=== PATIENT | female | born 1955 | race Hispanic/Latino ===

== ENCOUNTER 2017-06-12 09:59 | Day surgery (SDC) | payer OTHER ==
[2017-06-12 10:37] VITALS: TEMP 97.5
[2017-06-12] MEDS ORDERED: Propofol 10 mg/ml Inj (20 ML) ONE ×2 (12:24→12:42)
[2017-06-12] MEDS ORDERED: Lactated Ringer's 1,000 ML IV ONE (12:25)
[2017-06-12] MEDS ORDERED: Midazolam 2 MG/2 ML VIAL ONE (12:25)
[2017-06-12] MEDS ORDERED: Lidocaine Hydrochloride 5 ML INJ ONE (12:31)
[2017-06-12 15:28] VITALS: O2SAT 100
[2017-06-12 15:37] VITALS: BP 128/74; PULSE 77; RESP 18
== END 2017-06-12 14:15 | disposition home or self-care (01) ==
LOC: C.ENDO 09:59
PROVIDERS: ATTEND Internal Medicine Gastroenterology
DX: K27.9 Peptic ulcer, site unspecified, unspecified as acute or chronic, without hemorrhage or perforation (principal); K29.60 Other gastritis without bleeding; K64.8 Other hemorrhoids; R19.06 Epigastric swelling, mass or lump
CPT/HCPCS: 43239; 45378; 82948; 88305; 88342; J2250; J2704; J7120

== ENCOUNTER 2017-06-19 08:04 | Day surgery (SDC) | payer OTHER ==
[2017-06-19 08:33] VITALS: BMI 32.0
[2017-06-19] MEDS ORDERED: Lidocaine Hydrochloride 5 ML INJ ONE (09:40)
[2017-06-19] MEDS ORDERED: Propofol 10 mg/ml Inj (20 ML) ONE ×2 (09:40)
[2017-06-19] MEDS ORDERED: Lactated Ringer's 1,000 ML IV ONE (09:45)
[2017-06-19 10:39] VITALS: TEMP 97.1
[2017-06-19 11:40] VITALS: BP 142/77; PULSE 78; RESP 19; O2SAT 99
== END 2017-06-19 11:30 | disposition home or self-care (01) ==
LOC: C.ENDO 08:04
PROVIDERS: ATTEND Internal Medicine
DX: D13.1 Benign neoplasm of stomach (principal); K29.70 Gastritis, unspecified, without bleeding
CPT/HCPCS: 43238; 82948; 88305; J2704; J7120

== ENCOUNTER 2017-09-26 08:53 | Inpatient (IN) | payer OTHER ==
[2017-09-20 11:17] VITALS: BMI 33.2
[2017-09-26] MEDS ORDERED: Bupivacaine 0.25% 20 ML INJ IJ ONE (12:26)
[2017-09-26] MEDS ORDERED: Lidocaine 1% 20 MG/2 ML PF AMP ONE ×2 (12:26→13:02)
[2017-09-26] MEDS ORDERED: Ciprofloxacin 400mg/200ml D5W 400 MG/200 ML BAG IVPB ONE (12:35)
[2017-09-26] MEDS ORDERED: metroNIDAZOLE IV 500 mg/100 ml 500 MG/100 ML BAG ONE (12:35)
[2017-09-26] MEDS ORDERED: Midazolam 2 MG/2 ML VIAL ONE (12:58)
[2017-09-26] MEDS ORDERED: Propofol 10 mg/ml Inj (20 ML) ONE (12:58)
[2017-09-26] MEDS ORDERED: Rocuronium 10 mg/ml (5 ml) ONE (14:06)
[2017-09-26] MEDS ORDERED: Succinylcholine Chloride 20 mg/ml Syr (5 ml) IV ONE (14:06)
[2017-09-26] MEDS ORDERED: Neostigmine Methylsulfate 3mg/3ml Syringe IV ONE (14:47)
[2017-09-26] MEDS ORDERED: Phenylephrine 10 mg/ml Inj ONE (14:49)
--- NOTE | 2017-09-26 15:41 | PCM.SURG1 ---
Surgeon's Initial Post Op Note - Surgeon's Notes Surgeon: Donavan Car Driver: Henrry Type of Anesthesia: General Endo, Local Pre-Operative Diagnosis: GIST Operative Findings: Gastric mass in greater curvature of body of stomach Post-Operative Diagnosis: same Operation Performed: Laparoscopic gastric wedge resection w. EGD Specimen/Specimens Removed: stomach wedge Estimated Blood Loss: EBL {In ML}: 10 Blood Products Given: N/A Drains Used: No Drains Post-Op Condition: Good Date of Surgery/Procedure: 09/26/17 Time of Surgery/Procedure: 15:40
[2017-09-26] MEDS ORDERED: Lidocaine 5% Patch TD SCH (15:45)
[2017-09-26] MEDS: HYDROmorphone 0.5 mg/0.5 ml ISec IVP PRN ×3 (15:54→16:30)
[2017-09-26] MEDS ORDERED: Lactated Ringer's 1,000 ML IV ONE (16:37)
[2017-09-26] MEDS: (Novolin R) Insulin Human Regular 100 units/ml vial SC SCH ×2 (19:31→22:40)
[2017-09-26] MEDS: Lactated Ringer's 1,000 ML IV SCH ×2 (19:35→23:59)
--- NOTE | 2017-09-26 22:28 | PCM.OP ---
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 Peptic ulcer disease. Morbid obesity. 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 Peptic ulcer disease. Morbid obesity. Indication for Surgery: This is a very nice woman who has a history of PUD and H.pylori who was found to have a submucosal ulcerated mass in the mid-body of her stomach along the greater curve. 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 Details of HPI per clinical chart. The risks of surgery that includes leaks, bleeding, infections or injury, and need for open surgery have all been explained, and informed consent obtained. Operative Findings: Endoscopic findings: previously described gastric mass seen with central dimpling without gross ulceration or bleeding. Remaing esophagus appeared normal. GE junction at 38cm. No evidence of hiatus hernia. pylorus normal. 3rd part of duodenum intubated and appeared normal. Laparoscopic findings: Large 4cm x3cm exophytic mass on lateral and slightly posterior portion of greater curvature of gastric body. No other abnormal findings. Gastric mass removed in its entirety. Gastric staple lines hemostatic and negative peumatic leak test at end of case. Procedure/Operation Description: PROCEDURE PERFORMED: 1. Laparoscopic lateral wedge gastrectomy. 2. Esophagogastroduodenoscopy. DETAILS OF PROCEDURE: The patient was brought to the operating room, placed in the supine position. Ciprofloxacin and Flagyl given within 30 minutes prior to incision. Sequential compression stockings placed for DVT prophylaxis. No montes catheter placed as patient voided immediately prior to coming to OR. Abdominal hair removal with electrical clippers. Upper and lower body warming blankets placed to maintain body temperature. All pressure points padded. Arms were in neutral position at 80-degrees from the torso and all pressure points were padded. All trocar sites were preanesthetized with local anesthesia listed above. A #11 blade was used to make all skin incisions. A time-out was performed prior to incision. At 18 cm distal to the xiphoid along the midline, we made a transverse incision and entered the abdomen using a direct optical viewing device. Abdomen was insufflated to 15 mmHg using CO2. We then placed 5mm trocar in the patient's left mid abdomen under direct visualization, a 15mm. trocar in the patient's right mid-abdomen, and a 5 mm trocar in the left subcostal region. All trocars were placed under vision. Endoscopy was performed to confirm the exact location of gastric lesion. At approximately 8 cm proximal to the pylorus along the greater curvature, we. entered the lesser sac using the Vessel sealer. We then used the vessel. sealer and divided the short gastric vessels proximal and distal the the exophytic gastric mass. There was excellent hemostasis when this was done. After this was done, we passed our gastroscope down in towards the pylorus to serve as a calibrator tube. We used at total of 4 blue loads of te EndoGIA linear stapler to divide the gastric body mass as a lateral vertical wedge resection. Care was taken to minimize any encroachment on the angularis. All the staple lines were reinforced with SeamGuard staple reinforcement. The total gastric wedge specimen was measured on the back table and found to be [id number] in max dimension and inclusive of the entire mass. We then tested the gastric staple line under saline immersion with the gastroscope. There was no bleeding or any air leaks. We did this a couple times and it was the same. We withdrew the gastroscope under direct visualization. We then covered the entire staple line with omentum. We used the EndoCatch bag to remove the specimen through the RIGHT abdominal 15mm trocar site. We then closed the fascia at the trocar site using 0 Vicryl sutures interrupted x4 with the assistance of a suture passer under direct. visualization. We removed all the trocars under direct visualization and. evacuated the pneumoperitoneum. We then closed the skin using 4-0 Monocryl sutures in running subcuticular. fashion. Dermabond glue was applied. The patient tolerated the procedure well and was extubated on the operating room table. The patient was transferred to recovery in stable condition. All sponge , needle and instrument counts were correct. I was present for the entirety of the operation. Estimated Blood Loss: 20mL Complications: none Specimen: lateral gastric wedge of gastric mass Discharge & Condition: above
[2017-09-27] MEDS: Lactated Ringer's 1,000 ML IV SCH ×3 (03:07→21:49)
[2017-09-27] MEDS: HYDROmorphone 0.5 mg/0.5 ml ISec IVP PRN ×3 (03:55→21:02)
[2017-09-27] MEDS: (Novolin R) Insulin Human Regular 100 units/ml vial SC SCH ×4 (08:09→22:00)
[2017-09-27 08:29] LABS: BASO # 0.1 K/uL (0.0-0.2); BASO % 0.7 % (0.0-2.0); EOS % 0.5 % (0.0-4.0); LYMPH # 1.9 K/uL (1.0-4.3); LYMPH % 21.8 % (20.0-40.0); MEAN CELL VOLUME 86.7 fL (81.0-99.0); MEAN CORPUSCULAR HEMOGLOBIN 29.8 pg (27.0-31.0); MEAN CORPUSCULAR HGB CONC 34.4 g/dL (33.0-37.0); MEAN PLATELET VOLUME 8.2 fL (7.2-11.7); MONO # 0.7 K/uL (0.0-0.8); MONO % 8.4 % (0.0-10.0); NEUT % 68.6 % (50.0-75.0); RBC 4.7 Mil/uL (3.80-5.20); RED CELL DISTRIBUTION WIDTH 14.1 % (11.5-14.5); WHITE BLOOD COUNT 8.8 K/uL (4.8-10.8)
[2017-09-27 08:54] LABS: BLOOD UREA NITROGEN 12 mg/dL (7-17); CALCIUM 8.4 mg/dl (8.6-10.4); GFR NON-AFRICAN AMERICAN > 60
[2017-09-27] MEDS: Enoxaparin 40 mg Syringe SC SCH (10:42)
[2017-09-27] MEDS: Lidocaine 5% Patch TD SCH (10:42)
[2017-09-27] MEDS ORDERED: Iohexol 240 200 ML ONE (11:16)
--- NOTE | 2017-09-27 15:11 | CP.PCM.PN ---
<Umer Sales - Last Filed: 09/27/17 15:06> Subjective - Date & Time of Evaluation Date of Evaluation: 09/27/17 Time of Evaluation: 15:06 - Subjective Subjective: Surgery: Dr. Go Pt seen and examined. No acute events overnight. Pt is feeling well this AM. Pain controlled. No N/V. No F/C. Passing flatus, +BM. Objective - Vital Signs/Intake and Output Vital Signs (last 24 hours): Temp Pulse Resp BP Pulse Ox 98.2 F 76 20 130/79 96 09/27/17 07:00 09/27/17 07:00 09/27/17 07:00 09/27/17 07:00 09/27/17 07:00 Intake and Output: 09/27/17 09/27/17 06:59 18:59 Intake Total 800 Output Total 1000 Balance -200 - Medications Medications: Current Medications Enoxaparin Sodium (Lovenox) 40 mg SC DAILY [facility] Last Admin: 09/27/17 10:42 Dose: 40 mg Hydromorphone HCl (Dilaudid) 0.5 mg IVP Q3H PRN PRN Reason: Pain, moderate (4-7) Last Admin: 09/27/17 10:43 Dose: 0.5 mg Lactated Ringer's (Lactated Ringer's) 1,000 mls @ 100 mls/hr IV .Q10H [facility] Last Admin: 09/27/17 14:46 Dose: 100 mls/hr Insulin Human Regular (Novolin R) 0 unit SC ACHS [facility] PRN Reason: Protocol Last Admin: 09/27/17 11:49 Dose: Not Given Ketorolac Tromethamine (Toradol) 15 mg IVP Q6 [facility] Stop: 09/27/17 18:01 Last Admin: 09/27/17 14:45 Dose: 15 mg Lidocaine (Lidoderm) 1 ea TD DAILY [facility] Last Admin: 09/27/17 10:42 Dose: 1 ea Ondansetron HCl (Zofran Inj) 4 mg IVP Q6H [facility] Last Admin: 09/27/17 10:44 Dose: 4 mg Rosuvastatin Calcium (Crestor) 2.5 mg PO HS [facility] - Labs Labs: 09/27/17 08:19 09/27/17 08:19 - Constitutional Appears: Non-toxic, No Acute Distress - Head Exam Head Exam: ATRAUMATIC, NORMOCEPHALIC - Eye Exam Eye Exam: EOMI - ENT Exam ENT Exam: Mucous Membranes Moist - Neck Exam Neck Exam: Full ROM - Respiratory Exam Respiratory Exam: NORMAL BREATHING PATTERN. absent: Accessory Muscle Use, Respiratory Distress - GI/Abdominal Exam GI & Abdominal Exam: Soft. absent: Distended, Firm, Guarding, Rigid, Tenderness , Rebound Additional comments: incisions C/D/I - Extremities Exam Extremities Exam: absent: Calf Tenderness, Pedal Edema - Neurological Exam Neurological Exam: Alert, Awake, Oriented x3 - Psychiatric Exam Psychiatric exam: Normal Affect, Normal Mood Assessment and Plan - Assessment and Plan (Free Text) Assessment: 62F POD#1 Gastric wedge resection 2/2 gastric mass, likely GIST -UGIS done this AM, f/u official read -Will start FLD, pt will need FLD for 2 weeks -c/w pain management -encourage OOB/ambulation/IS use -Home meds resumed -c/w GI/DVT ppx -Tentative D/C tomorrow if diet tolerated and labs WNL -d/w attending Henrry PGY4 <Adrian Go - Last Filed: 09/27/17 17:03> Objective - Vital Signs/Intake and Output Vital Signs (last 24 hours): Temp Pulse Resp BP Pulse Ox 97.8 F 81 20 132/75 96 09/27/17 16:00 09/27/17 16:00 09/27/17 16:00 09/27/17 16:00 09/27/17 16:00 Intake and Output: 09/27/17 09/27/17 06:59 18:59 Intake Total 800 800 Output Total 1000 Balance -200 800 - Medications Medications: Current Medications Amlodipine Besylate (Norvasc) 5 mg PO HS [facility] Enalapril Maleate (Vasotec) 10 mg PO DAILY [facility] Enoxaparin Sodium (Lovenox) 40 mg SC DAILY [facility] Last Admin: 09/27/17 10:42 Dose: 40 mg Hydrochlorothiazide (Hydrodiuril) 25 mg PO DAILY [facility] Hydromorphone HCl (Dilaudid) 0.5 mg IVP Q3H PRN PRN Reason: Pain, moderate (4-7) Last Admin: 09/27/17 10:43 Dose: 0.5 mg Lactated Ringer's (Lactated Ringer's) 1,000 mls @ 100 mls/hr IV .Q10H [facility] Last Admin: 09/27/17 14:46 Dose: 100 mls/hr Insulin Human Regular (Novolin R) 0 unit SC ACHS [facility] PRN Reason: Protocol Last Admin: 09/27/17 17:02 Dose: Not Given Ketorolac Tromethamine (Toradol) 15 mg IVP Q6 [facility] Stop: 09/27/17 18:01 Last Admin: 09/27/17 14:45 Dose: 15 mg Lidocaine (Lidoderm) 1 ea TD DAILY [facility] Last Admin: 09/27/17 10:42 Dose: 1 ea Ondansetron HCl (Zofran Inj) 4 mg IVP Q6H [facility] Last Admin: 09/27/17 10:44 Dose: 4 mg Pantoprazole Sodium (Protonix Ec Tab) 40 mg PO DAILY [facility] Last Admin: 09/27/17 17:02 Dose: 40 mg Rosuvastatin Calcium (Crestor) 2.5 mg PO HS [facility] - Labs Labs: 09/27/17 08:19 09/27/17 08:19 Assessment and Plan - Assessment and Plan (Free Text) Plan: Seen and examined. Agree with above. UGI contrast study negative. Start full liquid diet. Pain control. Pulmonary toilet. OOB ambulate in [place]. Nutrition to see re: and full liquid diet teaching on discharge.
--- NOTE | 2017-09-27 15:45 | RAD ---
Date of service: 09/27/2017 HISTORY: Dysphagia. COMPARISON: No prior study available for comparison TECHNIQUE: Limited single contrast esophagram/upper GI series performed with Omnipaque 240 were slightly contrast material. FINDINGS: Patient tolerated procedure well. ESOPHAGUS: Esophageal mucosa appeared preserved. No evidence of stricture or mass lesion. HIATAL HERNIA: None demonstrated. GASTROESOPHAGEAL REFLUX: Not demonstrated. OTHER FINDINGS: Wedge resection changes of the stomach as per history poorly delineated. No evidence of contrast extravasation at the level of distal esophagus or stomach. No evidence of obstruction with oral contrast material rapidly passing into the proximal small bowel. IMPRESSION: Limited study demonstrating no evidence of contrast extravasation at the level of the distal esophagus or stomach. . Wedge resection changes of the stomach as per history poorly delineated on this exam. No evidence of obstruction.
[2017-09-27] MEDS: Pantoprazole 40 mg EC Tab PO SCH (17:02)
[2017-09-27] MEDS ORDERED: Rosuvastatin Calcium 2.5 mg Tab PO SCH (22:00)
[2017-09-28] MEDS: Lactated Ringer's 1,000 ML IV SCH ×2 (00:04→08:09)
[2017-09-28] MEDS: HYDROmorphone 0.5 mg/0.5 ml ISec IVP PRN ×3 (00:19→13:54)
[2017-09-28 00:23] VITALS: RESP 20
[2017-09-28 07:28] LABS: HEMOGLOBIN 12.1 g/dL (11.0-16.0); MEAN CELL VOLUME 86.8 fL (81.0-99.0); MEAN CORPUSCULAR HEMOGLOBIN 29.3 pg (27.0-31.0); MEAN CORPUSCULAR HGB CONC 33.8 g/dL (33.0-37.0); MEAN PLATELET VOLUME 8.2 fL (7.2-11.7); RBC 4.12 Mil/uL (3.80-5.20); RED CELL DISTRIBUTION WIDTH 13.9 % (11.5-14.5); WHITE BLOOD COUNT 7.1 K/uL (4.8-10.8)
--- NOTE | 2017-09-28 07:43 | CP.PCM.DIS ---
Provider - Provider Date of Admission: 09/26/17 08:53 Attending physician: Adrian Go MD Time Spent in preparation of Discharge (in minutes): 30 Diagnosis - Discharge Diagnosis (1) Gastric mass Status: Acute Hospital Course - Lab Results Lab Results: Most Recent Lab Values WBC 7.1 K/uL (4.8-10.8) 09/28/17 07:12 RBC 4.12 Mil/uL (3.80-5.20) 09/28/17 07:12 Hgb 12.1 g/dL (11.0-16.0) 09/28/17 07:12 Hct 35.7 % (34.0-47.0) 09/28/17 07:12 MCV 86.8 fL (81.0-99.0) 09/28/17 07:12 MCH 29.3 pg (27.0-31.0) 09/28/17 07:12 MCHC 33.8 g/dL (33.0-37.0) 09/28/17 07:12 RDW 13.9 % (11.5-14.5) 09/28/17 07:12 Plt Count 159 K/uL (130-400) 09/28/17 07:12 MPV 8.2 fL (7.2-11.7) 09/28/17 07:12 Neut % (Auto) 68.6 % (50.0-75.0) 09/27/17 08:19 Lymph % (Auto) 21.8 % (20.0-40.0) 09/27/17 08:19 [place] % (Auto) 8.4 % (0.0-10.0) 09/27/17 08:19 Eos % (Auto) 0.5 % (0.0-4.0) 09/27/17 08:19 Baso % (Auto) 0.7 % (0.0-2.0) 09/27/17 08:19 Neut # (Auto) 6.0 K/uL (1.8-7.0) 09/27/17 08:19 Lymph # (Auto) 1.9 K/uL (1.0-4.3) 09/27/17 08:19 [place] # (Auto) 0.7 K/uL (0.0-0.8) 08/22/18 08:19 Eos # (Auto) 0.0 K/uL (0.0-0.7) 09/27/17 08:19 Baso # (Auto) 0.1 K/uL (0.0-0.2) 09/27/17 08:19 Sodium 142 mmol/L (132-148) 09/27/17 08:19 Potassium 3.8 mmol/L (3.6-5.2) 09/27/17 08:19 Chloride 95 mmol/L (98-107) L 09/27/17 08:19 Carbon Dioxide 33 mmol/L (22-30) H 09/27/17 08:19 Anion Gap 18 (10-20) 09/27/17 08:19 BUN 12 mg/dL (7-17) 09/27/17 08:19 Creatinine 0.7 mg/dL (0.7-1.2) 09/27/17 08:19 Est GFR ( Amer) > 60 09/27/17 08:19 Est GFR (Non-Af Amer) > 60 09/27/17 08:19 POC Glucose (mg/dL) 151 mg/dL (65-110) H 09/28/17 07:05 Random Glucose 118 mg/dL (65-105) H 09/27/17 08:19 Calcium 8.4 mg/dl (8.6-10.4) L 09/27/17 08:19 Blood Type O POSITIVE 09/26/17 10:07 Antibody Screen Negative 09/26/17 10:07 - Hospital Course Hospital Course: 62F presented SDS for elective laparoscopic wedge resection of gastric mass. Post operative course was uncomplicated and pt did well. Her pain is controlled. She is tolerating full liquid diet. No N/V. She is ambulating and voiding without issue. She is clear for D/C from surgical standpoint. She is to follow up with Dr. Go in 2 weeks. She is to continue to full liquid diet for 2 weeks and take pain meds as instructed. Discharge Exam - Head Exam Head Exam: ATRAUMATIC, NORMOCEPHALIC - Eye Exam Eye Exam: EOMI - ENT Exam ENT Exam: Mucous Membranes Moist - Neck Exam Neck exam: Full Rom - Respiratory Exam Respiratory Exam: NORMAL BREATHING PATTERN. absent: Accessory Muscle Use, Respiratory Distress - GI/Abdominal Exam GI & Abdominal Exam: Soft, Tenderness (oscar-incisional ). absent: Distended, Firm, Guarding, Rebound, Rigid - Neurological Exam Neurological exam: Alert, Oriented x3 - Skin Skin Exam: Dry, Warm Discharge Plan - Discharge Medications Prescriptions: Acetaminophen/Hydrocodone Bi [Vicodin 300 mg-5 mg] 1 tab PO Q6H PRN #28 tab PRN Reason: Pain, Moderate (4-7) Docusate Sodium [Colace] 50 mg PO BID #60 capsule - Follow Up Plan Condition: GOOD Disposition: HOME/ ROUTINE Patient education suggested?: Yes Additional Instructions: Full liquid diet for 2 weeks Take pain meds as instructed Follow up with Dr. Go in 2 weeks No heavy lifting >15lbs for 4 weeks Referrals: Adrian Go MD [Staff Provider] -
[2017-09-28 07:46] LABS: BLOOD UREA NITROGEN 11 mg/dL (7-17); CALCIUM 8.4 mg/dl (8.6-10.4); GFR NON-AFRICAN AMERICAN > 60
[2017-09-28] MEDS: (Novolin R) Insulin Human Regular 100 units/ml vial SC SCH ×3 (08:11→16:56)
[2017-09-28] MEDS: Enoxaparin 40 mg Syringe SC SCH (09:40)
[2017-09-28] MEDS: Pantoprazole 40 mg EC Tab PO SCH (09:41)
[2017-09-28] MEDS: Lidocaine 5% Patch TD SCH (10:42)
[2017-09-28 16:19] VITALS: BP 113/70; PULSE 83; TEMP 98.3; O2SAT 96
== END 2017-09-28 17:30 | disposition home or self-care (01) | DRG 239 ==
LOC: C.9S 08:53 → C.6T 17:23 → C.3T 09-27 10:14
PROVIDERS: ADMIT Surgery; ATTEND Surgery
PROC: 0DB64ZZ Excision of Stomach, Percutaneous Endoscopic Approach (ICD-10-PCS; principal; 2017-09-26 10:00)
PROC: 0DJ08ZZ Inspection of Upper Intestinal Tract, Via Natural or Artificial Opening Endoscopic (ICD-10-PCS; 2017-09-26 10:00)
DX: C49.A2 Gastrointestinal stromal tumor of stomach (principal); K27.9 Peptic ulcer, site unspecified, unspecified as acute or chronic, without hemorrhage or perforation; E66.01 Morbid (severe) obesity due to excess calories; Z68.33 Body mass index [BMI] 33.0-33.9, adult